=== PATIENT | female | born 1975 | race African-American/Black ===

== ENCOUNTER 2024-10-10 14:33 | Outpatient (CLI) | payer OTHER, SELFPAY ==
--- NOTE | ~2024-10-10 | MR_ITS ---
EXAMINATION: MR shoulder LT wo con DATE: 10/10/2024 15:27 INDICATION: Pain of left shoulder region, Left Shoulder Pain . TECHNIQUE: Magnetic resonance imaging (MRI) of the shoulder was performed without intravenous contras t. Sequences included axial PD-weighted FS FSE, coronal oblique PD-weighted FS FSE and T2-weighted FS FSE, and sagittal oblique T2-weighted FS FSE and T1-weighted FSE. COMPARISON: None. FINDINGS: Coracoacromial arch: Mild anterior downsloping of the type I acromion. Small inferior acromial tip enthesophyte. Mild suba cromial space narrowing. Mild subcoracoid space narrowing Rotator cuff: Supraspinous, infraspinatus, and teres minor are intact. Focal thickening and abnormal signal in the distal subscapularis tendon. Biceps tendon and glenoid labrum: Considerable thickening and abnormal signal within the long head of biceps tendon, including short se gment linear high signal abnormality near the anchor. Severely degenerative glenoid labrum that is pa rtially obscured by artifact. Fluid: Small volume glenohumeral joint fluid collection. Trace subacromial/subdeltoid fluid. 11 mm loose bod y in the subscapular and inferior joint recesses. 2.2 x 1.1 cm ossific body in the anterior joint. Bones/cartilage: Susceptibility artifact over the glenoid which obscures anatomic detail of the glenoid, labrum and gl enohumeral joint. Moderate glenohumeral cartilage thinning. Moderate humeral head osteophytosis. Mild degenerative change at the AC joint. Degenerative subcortical cystic change in the superior humeral head IMPRESSION: Likely status post surgical repair of the glenoid. Recommend correlation with surgical history and op erative rib note. 2.2 cm ossific body in the anterior shoulder, may represent old fracture fragment. Recommend a comple te shoulder radiograph series for further characterization of this finding and further assessment of the surgical changes. Multiple loose body in the glenohumeral joint. Moderate glenohumeral osteoarthritis. Severe long head of biceps tendinopathy, with short longitudinal type tear. Subscapularis tendinopathy. Reviewed, dictated and finalized at location K. IMPRESSION: Likely status post surgical repair of the glenoid. Recommend correlation with s urgical history and operative rib note. 2.2 cm ossific body in the anterior shoulder, may represent old fracture fragme nt. Recommend a complete shoulder radiograph series for further characterizatio n of this finding and further assessment of the surgical changes. Multiple loose body in the glenohumeral joint. Moderate glenohumeral osteoarthritis. Severe long head of biceps tendinopathy, with short longitudinal type tear. Subscapularis tendinopathy.
--- OUTSIDE RECORDS SUMMARY | 2024-10-10 14:36 | XMS_ITS ---
Author Organization [employer] Address [address] [facility] [address] [place] [address] Care Team Providers Care Performance Improvement Manager Name Role Phone Migration, Provider Unavailable Unavailable REASON FOR VISIT EMR-Eliu Encounters Encounter Location Date Provider [facility] [place] [address] [facility] [address] [place], [place] [id number] 12/20/2023 Provider Migration Plan Of Treatment No Information Progress Notes * Arminda TALBERTOB:1975 (49 yo F)Acc No.[id number]:12/20/2023 Patient: Cornelia BANSAL :1975 A ge:48 Y S ex:Female Address:[address] [facility], [place], [address] Subjective: * Chief Complaints: * E MR-Eliu * Medical History: * Surgical History: * Hospitalization/Major Diagno stic Procedure: * Medications: Objective: * Vitals: * Physical Examination: Assessment: Plan: * Treatment: * Procedure Codes: * * Date:
--- OUTSIDE RECORDS SUMMARY | 2024-10-10 14:36 | XMS_ITS ---
Author Organization [employer] Address [address] [facility] [address] [place] [address] Care Team Providers Care Pin Sorter And Bagger Name Role Phone Migration, Provider Unavailable Unavailable REASON FOR VISIT EMR-Eliu Encounters Encounter [facility] Date [facility] [place] [address] [facility] [address] [place], [place] [id number] 12/21/2023 Provider Migration Plan Of Treatment No Information Progress Notes * Arminda TALBERTOB:1975 (49 yo F)Acc No.[id number]:12/21/2023 Patient: Cornelia BANSAL :1975 A ge:48 Y S ex:Female Address:[address] [facility], [place], [address] Subjective: * Chief Complaints: * E MR-Eliu * Medical History: * Surgical History: * Hospitalization/Major Diagno stic Procedure: * Medications: Objective: * Vitals: * Physical Examination: Assessment: Plan: * Treatment: * Procedure Codes: * * Date:
--- OUTSIDE RECORDS SUMMARY | 2024-10-10 14:36 | XMS_ITS | Patient Health Record ---
Author Organization [employer] Address [address] [facility] [address] [place] [address] Care Team Providers Care Assorter Laundry Name Role Phone Migration, Provider Unavailable Unavailable Reason For Referral No Information Encounters Encounter Location Date Provider Diagnosis [facility]lali Olivares [facility] [address] [facility] [address] [place], [place] [id number] 12/20/2023 Provider Migration Citlali Olivares [facility] [address] [facility] [address] [place], [place] [phone] 12/21/2023 Provider Migration Plan Of Treatment No Information
--- OUTSIDE RECORDS SUMMARY | 2024-10-10 14:36 | XMS_ITS | Referral Summary ---
Author Organization [facility] al Address [address] [place] [address] Care Team Providers Care Self Pay Specialist Name Role Phone No, Physician Primary Care Provider [phone] Allergies No known active allergies Medications acetaminophen (TYLENOL) 500 mg tabletIndicatio ns:Pain Take 1-2 tablets (500-1,000 mg total) by mouth every 6 (six) hours as needed for pain (1 tablet for mild to moderate pain. 2 tablets for severe pain) 30 tablet 1 Active naproxen (NAPROSYN) 500 mg tablet Take 1 tablet (500 mg total) by mouth 2 (two) times a day with meals 30 tablet 1 Active albuterol HFA (PROVENTIL HFA,VENTOLIN HFA,PROAIR HFA) 90 mcg/actuation inhaler Inhale 2 puffs every 4 (four) hours as needed for wheezing 8.5 g 3 Active fluticasone propion-salmete roL (ADVAIR DISKUS) 250-50 mcg/dose diskus inhalerIndicati ons:Maintenance Therapy for Asthma,Rinse mouth after use Inhale 1 puff 2 (two) times a day Rinse mouth with water after use. Do not swallow. 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 2-4 times a month 05/02/2023 Q2: How many drinks containi ng alcohol do you have on a typical day when you are drinking? 1 or 2 05/02/2023 Q3: How often do you have si x or more drinks on one occasion? Never 05/02/2023 Personal Safety Answer Date Recorded Have you ever been in or are you currently in a harmful physical or emotional relationship or is someone making you feel afraid or unsafe? Denies 05/02/2023 Comments No Sex and Gender Information Value Date Recorded Sex Assigned at Not on file Legal Sex Female 8:24 AM CLIP LOADING MACHINE FEEDER Gender Identity Not on file Sexual Orientation Not on file Last Filed Vital Signs Vital Sign Reading Time Taken Comments Blood Pressure 118/68 03/31/2024 1:12 PM CLIP LOADING MACHINE FEEDER Pulse 91 03/31/2024 1:12 PM CLIP LOADING MACHINE FEEDER Temperature 36.9 C (98.5 F) 03/31/2024 1:12 PM CLIP LOADING MACHINE FEEDER Respiratory Rate 18 03/31/2024 1:12 PM CLIP LOADING MACHINE FEEDER Oxygen Saturation 99% 03/31/2024 1:12 PM CLIP LOADING MACHINE FEEDER Inhaled Oxygen Concentration - - Weight 79.4 kg (175 lb) 03/31/2024 1:12 PM CLIP LOADING MACHINE FEEDER Height 162.6 cm (5' 4) 03/31/2024 1:12 PM CLIP LOADING MACHINE FEEDER Body Mass Index 30.04 03/31/2024 1:12 PM CLIP LOADING MACHINE FEEDER Plan of Treatment Not on file Insurance IDPA [facility] [employer]CIAL GENERIC [facility] Care Teams Self Pay Specialist Relationship Specialty Start Date End Date No, Physician PCP - General 04/21/23
--- OUTSIDE RECORDS SUMMARY | 2024-10-10 14:36 | XMS_ITS | Clinical Summary ---
Author Organization [facility] Address [address] [place] [address] Care Team Providers Care Microsoft Dynamics Consultant Name Role Phone None, Provider MD Primary Care Provider Unavaila ble Allergies No known active allergies Medications No known medications Active Problems No known active problems Family History Medical History Relation Comments Cancer Mother Hyperlipidemia Mother Relation Status Comments Mother Social History Tobacco Use Types Packs/Day Years Used Date Smoking Tobacco: Never Smokeless Tobacco: Never Alcohol Use Standard Drinks/Week Comments Yes 0 (1 standard drink = 0.6 oz pur e alcohol) OCCASIONAL Comments No Sex and Gender Information Value Date Recorded Sex Assigned at Not on file Legal Sex Female 4:36 PM CDT Gender Identity Not on file Sexual Orientation Not on file Last Filed Vital Signs Vital Sign Reading Time Taken Comments Blood Pressure 123/95 11/30/2023 3:46 PM CDT Pulse 78 11/30/2023 3:46 PM CDT Temperature 37.1 C (98.8 F) 11/30/2023 3:46 PM CDT Respiratory Rate 16 11/30/2023 3:46 PM CDT Oxygen Saturation 100% 11/30/2023 3:46 PM CDT Inhaled Oxygen Concentration - - Weight 72.6 kg (160 lb) 11/30/2023 3:46 PM CDT Height 165.1 cm (5' 5) 11/30/2023 3:46 PM CDT Body Mass Index 26.63 11/30/2023 3:46 PM CDT Plan of Treatment Health Maintenance Due Date Last Done Comments Cervical Cancer Screening Pa p Smear (Age 30 to 64) Every 3 Years 1974 Colorectal Cancer Screening Colonoscopy (10 Years) 1974 Annual Physical 1977 Hepatitis C 1992 DTaP, Tdap and Td Vaccines ( 1 - Tdap) 1993 Hepatitis B Vaccines (1 of 3 - 19+ 3-dose series) 1993 Cervical Cancer Screening Iggy sherman with HPV Testing (Age 30 to 64) Every 5 Years 2004 Cervical Cancer Screening with HPV 2004 Mammogram Screening 2014 COVID-19 Vaccine (2 - 2023-2 5 season) 2023 06/29/2020 Pneumococcal Vaccine: 50+ Ye ars (1 of 1 - PCV) 2024 Zoster Vaccines (1 of 2) 2024 Meningococcal B Vaccine Aged Out No l onger eligible based on patient's age to complete this topic Meningococcal Vaccine Aged Out No armando jsesica eligible based on patient's age to complete this topic RSV Immunizations Under 20 Months Aged Out No longer eligible based on patient's age to complete this topic Insurance MEDICAID MEDICARE MEDICARE [facility] Care Teams Microsoft Dynamics Consultant Relationship Specialty Start Date End Date None, Provider, PCP - General UNKNOWN PHYSICIAN SPECIALTY 11/30/23
--- OUTSIDE RECORDS SUMMARY | 2024-10-10 14:36 | XMS_ITS | Data Portability ---
Author Organization [place] - [facility] Main Office Address [address] [place] [address] Assessment Encounter Date Assessment Date Assessment LastModified by Organization Details LastModified Time 09/01/2024 09/01/2024 49-year-old presents today with left shoulder pain that started after an injury at work in April. She states that she was using a power tool that jerked her arm and caused it to dislocate anteriorly. She states that the arm relocated on its own. Her boss was a witness to this. They sent her to the medical office at her work and she states she was given ice and placed on light duty. Since his injury she has lost function of the arm. She can not lift it more than a couple of degrees in front of her. She has severe pain when trying to move it and the pain keeps her awake most nights. She thought it would eventually get better on its own but it has gotten worse. For treatment she has tried Tylenol and ibuprofen, which do not help. She worked light duty for a while before quitting because she was unable to go back full duty. She states when she was younger she had a surgery on her left shoulder but is unsure what was done. She did not have any issues with the shoulder after that surgery, she states all of her issues started after this work injury. Review of systems per patient questionnaire imaging: X-rays reviewed show no acute bony abnormality or fracture. She has severe osteoarthritis of the shoulder. There is hardware present in the glenoid that is intact. Physical exam: pain with palpitation over anterior and posterior shoulder. Range of motion 85/ 15/ back pocket. Pain with elevation without resistance. 4/5 rotator cuff strength. Positive jobes. She had acute loss of function after a dislocation of the shoulder. She likely tore her rotator cuff when this injury occurred. We will get an MRI of the left shoulder to assess this. For pain we will try meloxicam. Since this was a work injury we discussed whether or not she plans to file this as a worker's comp claim. She states this was not something she thought about doing and will discuss it with a relative in the legal field. She wanted to proceed with todays appointment. We will see her back after the MRI to go over results. [email or web address] Not available 09/02/2024 15:37:09 Plan of Treatment Reminders Order Date Submit Date Provider Last Modified By Organization Details Last Modified Time Details Appointments Any 5 2024 02:30P William Philip MD Not available Not available Not available Lab None recorded. Referral None recorded. Procedures None recorded. Surgeries None recorded. Imaging XR, shoulder, 2 or more view 2024 025 [email or web address] [place], [address], [place], [address], 09/01/2024 21:42:31 MRI, shoulder, w/o contrast - Please provide pt with disc to bring to apt. Thanks patient is scheduled 10/05 025 [facility], [address], [place], [address], 10/05/2024 15:54:49 Medication Orders meloxicam 15 mg tablet 2024 025 [id number], [address] [facility], [place], [place], [id number], 09/06/2024 09:33:21 Patient TargetsNo targets recorded. Patient InstructionsNo instructions recorded. Reason for Referral None Reported. Results Created Date Observation Date Name Description Value Unit Range Abnormal Flag Note LastModifiedBy Organization Detail LastModifiedTime 09/02/19 25 XR, shoul jeffery, 2 or more view No observ ation record ed. [email or web address] [facility] [place] [address], [place], [address], 09/01/2024 16:31:09 Result Notes None recorded. Problems Name Problem SNOMED Code Status Onset Date Resolution Date Notes Provider Name and Address Organization Details Recorded Time Pain of left shoulder region Active 025 Jovana Scott CNA audelia [facility] [place] 09/01/2024 15:40:11 Problem Notes None recorded. Medical Equipment None Reported. Allergies No known drug allergies Medications Name Sig Start Date Stop Date Status Note LastModified by Organization Details LastModified Time meloxicam 15 mg tablet TAKE 1 TABLET BY MOUTH EVERY DAY active Not Available Not Available No t Available albuterol sulfate HFA 90 mcg/actuat ion aerosol inhaler INHALE TWO PUFFS BY MOUTH EVERY 6 HOURS NEEDED FOR SHORTNESS OF BREATH OR WHEEZING 09/01 completed Not Available Not Available Not Available Denta 5000 Plus 1.1 % cream USE SMALL PEA-SIZE AMOUNT AT BEDTIME. DO NOT RINSE FOR AT LEAST 30 MINS 09/01 completed Not Available Not Available Not Available Vitals Date Recorded Body height Body mass index (BMI) Body weight Provider Name and Address Organization Details Last Updated DateTime 09/01/2024 157.48 cm 29.3 kg/m2 73410.78 g Jovana Scott CNA [facility] 09/01/2024 15:37:17 Social History None recorded. Functional Status Question Answer Note LastModified by Organization D etails LastModified Time What is your level of alcohol consumption? None [email or web address] Information not available 09/01/2024 Mental Status None recorded. Family History Relationship Description Onset Age of this Age Resolved Age Notes LastModified by Organization Details LastModified Time Mother History of malignant neoplasm [email or web address] Not available 2024 15:38:37 Maternal Aunt History of malignant neoplasm [email or web address] Not available 2024 15:38:37 Maternal Uncle History of malignant neoplasm [email or web address] Not available 2024 15:38:37 Medical History No medical history recorded. Gynecological HistoryNo gynecological history recorded. Obstetrics History GPAL:G 0 P 0 0 0 0 Past Encounters Encounter ID Performer Location Encounter Start Date Encounter Closed Date Diagnosis/Indication Diagnosis SNOMED-CT Code Diagnosis ICD10 Code Diagnosis Note [id number] Pardeep Philip MD [facility] [place] [address] [place] [address] 09/01/2024 15:21:19 09/01/2024 16:27:23 Pain of left shoulder region 4297032375 M25.512 Health Concerns Section Related Observation LastModified by Organization Detai ls LastModified Time None Recorded Concern Status LastModified by Organization Details LastModified Time None Recorded Advance Directives Directive None Recorded Payers Insurance Date Sequence Insurance Name Policy Number Policy Barone Covered Member ID Barone Member ID Guarantor Name 09/19/2024 1 [facility] (O) [id number] Cornelia Talbert [id number] Cornelia Talbert 08/30/2024 1 [employer] COMPLETE CARE (MEDICARE REPLACEMENT/ ADVANTAGE - HMO) Cornelia Talbert [id number] Cornelia Talbert OBGyn Episode No OBEpisode recorded.
--- OUTSIDE RECORDS SUMMARY | 2024-10-10 14:36 | XMS_ITS | Clinical Summary ---
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 Chronic pain 03/22/2016 Surgical History Surgery Date Site/Laterality Comments SHOULDER SURGERY Left Shoulder Surgery - (Added by TW Conv) SECTION x3 VAGINAL DELIVERY TUBAL LIGATION Bilateral 2010 Medical History Medical History Date Comments Asthma Obesity Adenopathy 03/[address] Dizziness 03/2023 Occasional use of marijuana Last menstrual period (LMP) > 10 days ago 2022 Family History Medical History Relation Name Comments Cancer Mother Family history of cancer - (Added by TW Conv) Stroke Mother Family history of cerebrovascular accident (CVA) - (Added by TW Conv) Relation Name Status Comments Mother Social History Tobacco Use [...] on file Legal Sex Female 8:24 AM PRE OWNED SALES CONSULTANT Gender Identity Not on file Sexual Orientation Not on file Obstetrics History Last Filed Vital Signs Vital Sign Reading Time Taken Comments Blood Pressure 118/68 03/31/2024 1:12 PM PRE OWNED SALES CONSULTANT Pulse 91 03/31/2024 1:12 PM PRE OWNED SALES CONSULTANT Temperature 36.9 C (98.5 F) 03/31/2024 1:12 PM PRE OWNED SALES CONSULTANT Respiratory Rate 18 03/31/2024 1:12 PM PRE OWNED SALES CONSULTANT Oxygen Saturation 99% 03/31/2024 1:12 PM PRE OWNED SALES CONSULTANT Inhaled Oxygen Concentration - - Weight 79.4 kg (175 lb) 03/31/2024 1:12 PM PRE OWNED SALES CONSULTANT Height 162.6 cm (5' 4) 03/31/2024 1:12 PM PRE OWNED SALES CONSULTANT Body Mass Index 30.04 03/31/2024 1:12 PM PRE OWNED SALES CONSULTANT Plan of Treatment Health Maintenance Due Date Last Done Comments Breast Cancer Screening-Mammogram 1974 Cervical Cancer Screening 1974 Colon Cancer Screening-Colonoscopy 1974 Depression Screening 1974 Hepatitis C Screening 1974 DTaP/Tdap/Td Vaccine (1 - Tdap) 1985 Hepatitis B Screening 1992 Regular Well Visit/Exam 18-64 1992 Covid-19 Vaccine (2 - 2023-2 5 season) 2023 06/29/2020 Zoster Vaccine (1 of 2) 2024 Influenza Vaccine (#1) 2024 Pneumococcal vaccine <65 Aged Out No longer eligible based on patient's age to complete this [place] [address] [facility] [employer]CIAL GENERIC [facility] [place] Care Teams Qc Manager Relationship Specialty Start Date End Date No, Physician PCP - General 04/21/23
== END 2024-10-10 14:34 | disposition home or self-care (01) ==
PROVIDERS: PCP Family Medicine; Visit Provider Nurse Practitioner Family
DX: M19.012 Primary osteoarthritis, left shoulder (principal); M24.012 Loose body in left shoulder
CPT/HCPCS: 73221

== ENCOUNTER 2025-02-05 10:55 | Emergency (ER) | payer MEDICARE, SELFPAY ==
[2025-02-05 11:07] VITALS: BP 127/76; PULSE 77; RESP 18; TEMP 36.8; O2SAT 100
--- NOTE | 2025-02-05 11:19 | ED.FEMALEGU ---
HPI - Female Genitourinary General Chief complaint: Urogenital-Female Stated complaint: urinary irritation patient presents to the [facility] with complaints of thin vaginal discharge, minimal vaginal irritation, and vaginal odor that began over the last few days. Patient does note she is in a monogamous relationship with 1 partner they do not use protection. Patient does not have significant concerns for STDs but would like tested. No history of STDs but noted has had yeast infections in the past this does not feel like previous infections. Denies abdominal pain, lower back pain, pelvic pain, vaginal bleeding, blood in urine, or burning with urination Related Data Allergies Allergy/AdvReac Type Severity Reaction Status Date / Time No Known Allergies Allergy Verified 02/05/25 10:58 Review of Systems Constitutional: Constitutional: Reports as per HPI, Denies chills and Denies fatigue Eyes: Eyes: Reports no additional eye complaints ENT: Reports system reviewed and no additional complaints, except as documented Cardiovascular: Cardiovascular: Reports no additional cardiovascular complaints Respiratory: Respiratory: Reports no additional respiratory complaints Gastrointestinal: Gastrointestinal: Reports as per HPI, Denies abdominal pain, Denies bloating, Denies heartburn, Denies diarrhea, Denies nausea and Denies vomiting Genitourinary: Genitourinary: Reports as per HPI, Denies abnormal vaginal bleeding, Denies hematuria, Denies nocturia, Denies genital lesions, Denies dysuria, Denies pelvic pain, Denies flank pain, Denies urinary incontinence and Reports vaginal discharge Musculoskeletal: Musculoskeletal: Reports as per HPI and Denies back pain Integumentary/Breasts: Skin/Breast: Reports as per HPI, Denies erythema and Denies rash Neurologic: Reports as per HPI, Denies headache(s), Denies numbness and Denies weakness Psychiatric: Psychiatric: Reports no additional psychiatric complaints Endocrine: Endocrine: Reports no additional endocrine complaints Hematologic/Lymphatic: Hematologic/Lymphatic: Reports no additional hematologic/lymphatic complaints Allergic/Immunologic: Allergic/Immunologic: Reports no additional allergic/immunologic complaints [facility] Past Medical History Medical History (Updated 02/05/25 @ 11:36 by Princess Lizama APRN, [employer]) Bipolar disorder Asthma Family History Family History (Updated 08/24/24 @ 09:17 by Jolly Otoole [facility]) Mother Breast cancer Lung cancer Heart problem Father Cerebrovascular accident Hypertension Sibling Depression Anxiety Social History Social History (Updated 08/24/24 @ 14:40 by Jolly Otoole CMA) Smoking status: Never smoker Alcohol intake: former Substance use: never Substance use type: does not use Do You Feel Safe in your Home?: Yes Lack of Transportation: No Lack of Food: Never True Current Housing: I Have Housing Concerned About Future Housing: No Difficulty Paying Gas/Electric Bills: No Difficulty Paying for Meds: No Currently Unemployed: No Education: High School Diploma/GED Difficulty w/ Childcare or Family Care: No Exam Const: General: healthy appearing and no acute distress Nutritional Appearance: well nourished Orientation/consciousness: patient oriented x3 Limitations: no limitations Resp: Effort & Inspection: normal respiratory effort Auscultation: clear to auscultation bilaterally Cardio: Rate: regular rate Rhythm: regular rhythm GI: Inspection: non-distended GI Palp: Yes Soft to palpation, No Tenderness to palpation present (GI), No Guarding due to palpation present (GI), No Rigid due to palpation, No Hernia present and No Rebound tenderness present Auscultation: normal bowel sounds : General: Yes bladder normal to palpation and Yes no CVA tenderness Skin: General skin exam: normal color Rashes: no rashes Wounds: no wounds Neuro: General: patient oriented x3 Speech: normal speech Gait exam (Neuro): Normal gait present Psych: Appearance: grossly normal Mental Status: mental status grossly normal Affect: normal affect Attitude: cooperative Course Course Level of Care: Express Care Visit Vital Signs Vital signs: Vital Signs Temperature 98.3 F 02/05/25 11:07 Pulse Rate 77 02/05/25 11:07 Respiratory Rate 18 02/05/25 11:07 Blood Pressure 127/76 02/05/25 11:07 Pulse Oximetry 100 02/05/25 11:07 Oxygen Delivery Room Air 02/05/25 11:07 Temperature 98.3 F 02/05/25 11:07 Pulse Rate 77 02/05/25 11:07 Respiratory Rate 18 02/05/25 11:07 Blood Pressure 127/76 02/05/25 11:07 Pulse Oximetry 100 02/05/25 11:07 Oxygen Delivery Room Air 02/05/25 11:07 MDM - Female Genitourinary MDM Narrative Medical decision making narrative: several testing done for STDs with bacterial vaginosis and yeast given symptoms will treat for bacterial vaginosis at this time. The patient was evaluated by myself in the express care. History is obtained from patient who is an independent historian and physical exam was performed. Available medical records were reviewed at this time. Exam findings show no acute concerns or changes; patient is non-toxic appearing and is in no distress. Patient is appropriate for outpatient treatment and follow-up. I have evaluated and discussed social determinants of health with the patient that could potentially impact subsequent diagnosis and treatment plans. Differential diagnosis and treatment plan were discussed with the patient. Patient agrees with discussion and after shared medical decision making agrees with plan of care. All questions were answered to the patient's satisfaction. Differential Diagnosis Differential diagnosis: Likely urinary tract infection, bacterial vaginosis, trichomoniasis, cervicitis, vaginitis and cystitis Medical Records Attestation: I reviewed the patient's medical records. Lab Data Attestation: I reviewed the patient's lab results. Discharge Plan Discharge Clinical Impression: Bacterial vaginosis Patient Disposition: Home Condition: Stable Instructions: Antibiotic Form, Bacterial Vaginosis (ED), Sexually Transmitted Diseases (ED) Additional Instructions: Will have tested your urine for chlamydia, gonorrhea, Trichomonas.We have also done vaginal swabs for bacterial vaginosis and yeast infection- we have started treatment for bacterial vaginosis You will get a call from the [facility] with results only if they are positive if you have questions or concerns you may call the [facility]. If you continue to have symptoms follow-up with [facility] or primary care physician for evaluation. Would recommend follow-up with primary care, [facility], health department, clinic in [place], or [facility] [place] for further STD testing or follow-up STD testing. They do have blood work testing available at these facilities. Few began to have significant abdominal pain, fever, chills, body aches, or any other concerning symptoms go to the emergency room for further evaluation of symptoms. Patient Language: Telugu Prescriptions: New metronidazole 1.3 % (65 mg/5 gram) gel 1 appful vaginal HS Qty: 25 0RF No Action albuterol sulfate [Ventolin HFA] 90 mcg/actuation HFA aerosol inhaler 1 puff inhalation Q4H PRN (Reason: shortness of breath or wheezing) Qty: 6.7 0RF fluticasone propion-salmeterol 100-50 mcg/dose blister with device See Rx Instructions .ROUTE .COMPLEX Qty: 180 0RF Dose Instruction: INHALE 1 PUFF BY MOUTH EVERY 12 HOURS Rx Instructions: INHALE 1 PUFF BY MOUTH EVERY 12 HOURS Follow-up/Referrals: Yajaira Boston DO [Primary Care Provider, [facility]] Time of Disposition: 11:37
--- NOTE | 2025-02-05 11:34 | PC.NURSE ---
1125 to br to collect vag. swab for bv and yeast per surg tech order and to collect clean and dirty urine for sti and uti testing.
[2025-02-05 11:54] LABS: EDUAAPPEAR Clear; EDUABILI Negative (Negative); EDUABLOOD Negative (Negative); EDUACOLOR1 Yellow; EDUAGLUCOSE Negative (Negative); EDUAKETONE Negative (Negative); EDUALEUKO Trace (Negative); EDUANITRATE Negative (Negative); EDUAPH 5.5; EDUAPROTEIN Negative (Negative); EDUASPGRAVITY 1.025; EDUAUROBILI 0.2
[2025-02-05 19:10] LABS: Trichomonas Vag PCR DETECTED (NOT DETECTE)
== END 2025-02-05 11:42 | disposition home or self-care (01) ==
PROVIDERS: Emergency Provider Nurse Practitioner Family; PCP Family Medicine
DX: N76.0 Acute vaginitis (principal); Z11.3 Encounter for screening for infections with a predominantly sexual mode of transmission; J45.909 Unspecified asthma, uncomplicated
CPT/HCPCS: 81003; 87086; 87101; 87491; 87591; 87661; 87798; 99213; G0463

== ENCOUNTER 2025-03-21 00:44 | Day surgery (SDC) | payer MEDICARE, MEDICAID, SELFPAY ==
[2025-02-28 09:25] VITALS: BMI 28.9
[2025-03-21 06:43] VITALS: BP 118/62; PULSE 79; RESP 18; TEMP 36.4; O2SAT 99; BMI 30.4
[2025-03-21 06:58] LABS: BEDSIDEPREGUCG Negative (Negative)
[2025-03-21] MEDS: LACTATED RINGERS 1,000 ML 150 ML IV CONT (07:04)
--- NOTE | 2025-03-21 07:31 | WPDANESEPPF ---
Anes - Initial Pre Proc Eval Procedure: Operation Date: 03/21/25 08:00 Proposed Procedures p Screening Colonoscopy - Jg Field DO Date/Time: 03/21/25 07:31 Surgeon: Jg Field DO Pre Op Diagnosis: Neoplasm screening Patient Data Age: 49 Gender: F Height: 1.6 m Weight: 77.8 kg Last Vital Signs Temp 36.4 C 03/21/25 06:43 Pulse 79 03/21/25 06:43 Resp 18 03/21/25 06:43 BP 118/62 03/21/25 06:43 Pulse Ox 99 03/21/25 06:43 O2 Del Method Room Air 03/21/25 06:43 Allergies Allergy/AdvReac Type Severity Reaction Status Date / Time No Known Allergies Allergy Verified 03/21/25 06:50 Home Medications ?Medication ?Instructions ?Recorded ?Confirmed ?Type albuterol sulfate 90 mcg/actuation 1 puff inhalation Q4H PRN 09/13/24 03/21/25 Rx aerosol inhaler (Ventolin HFA) shortness of breath or wheezing #6.7 grams Laboratory Tests 03/21/25 06:56 POC Urine HCG, Qual Negative (Negative) Patient hx anesthesia problems: none Family hx anesthesia problems: none Results Review: All pre-operative results and documents have been reviewed as part of the pre-operative evaluation. [facility] Past Medical History Medical History Bipolar disorder Asthma Family History Family History Mother Breast cancer Lung cancer Heart problem Father Cerebrovascular accident Hypertension Sibling Depression Anxiety Social History Social History Smoking status: Never smoker Alcohol intake: former Substance use: never Substance use type: does not use Lack of Transportation: No Lack of Food: Never True Current Housing: I Have Housing Concerned About Future Housing: No Difficulty Paying Gas/Electric Bills: No Difficulty Paying for Meds: No Currently Unemployed: No Education: High School Diploma/GED Difficulty w/ Childcare or Family Care: No Anes - Eval Final PreProcedure Day of Procedure 03/21/25 07:31 Patient weight: overweight Heart: regular rate and rhythm Lungs: clear to auscultation Airway: Mallampati scale class III Neurological: alert and oriented Last oral intake: >/= 8 hours ASA classification: II Emergent: no Anesthetic plan: proceed Anesthesia type and monitoring: general GIVS and standard monitoring Results Review: All pre-operative results and documents have been reviewed as part of the pre-operative evaluation. Informed Consent: The patient's anesthetic plan and its attendant risks and benefits were discussed with the patient/family/POA. Questions were solicited and answers provided to the satisfaction of the patient/family/POA.
--- NOTE | 2025-03-21 07:59 | P.HP_ITS ---
H&P: HPI History of Present Illness Date/Time: 03/21/25 07:59 Chief Complaint: Screening for colorectal cancer Narrative: This is a 49-year-old woman who presents for her 1st colonoscopy. She denies any hematochezia or melena. She denies any family history of colon cancer. Review of Systems Review of Systems: All systems reviewed & are unremarkable except as noted in HPI and below Constitutional: Constitutional: Denies chills, Denies fever(s), Denies headache(s) and Denies weight loss Eyes: Eyes: Denies change in vision ENT: Denies dizziness, Denies headache(s), Denies neck mass and Denies throat swelling Cardiovascular: Cardiovascular: Denies chest pain, Denies lightheadedness and Denies dyspnea Respiratory: Respiratory: Denies cough, Denies dyspnea and Denies wheezing Gastrointestinal: Gastrointestinal: Denies abdominal pain, Denies change in bowel habits, Denies nausea and Denies vomiting Genitourinary: Genitourinary: Denies hematuria and Denies dysuria Musculoskeletal: Musculoskeletal: Reports as per HPI Integumentary/Breasts: Skin/Breast: Reports as per HPI Neurologic: Denies dizziness and Denies headache(s) Allergic/Immunologic: Allergic/Immunologic: Denies throat swelling and Denies wheezing PMFSH Past Medical History Medical History Bipolar disorder Asthma Family History Family History Mother Breast cancer Lung cancer Heart problem Father Cerebrovascular accident Hypertension Sibling Depression Anxiety Social History Social History Smoking status: Never smoker Alcohol intake: former Substance use: never Substance use type: does not use Lack of Transportation: No Lack of Food: Never True Current Housing: I Have Housing Concerned About Future Housing: No Difficulty Paying Gas/Electric Bills: No Difficulty Paying for Meds: No Currently Unemployed: No Education: High School Diploma/GED Difficulty w/ Childcare or Family Care: No Meds Home Medications and Allergies Home Medications ?Medication ?Instructions ?Recorded ?Confirmed ?Type albuterol sulfate 90 mcg/actuation 1 puff inhalation Q 4H PRN 09/13/24 03/21/25 Rx aerosol inhaler (Ventolin HFA) shortness of breath or wheezing #6.7 grams Allergies Allergy/AdvReac Type Severity Reaction Status Date / Time No Known Allergies Allergy Verified 03/21/25 06:50 Vital Signs Vital Signs - 24 hr 03/21/25 06:43 Temperature 97.6 F Pulse Rate 79 Respiratory Rate 18 Blood Pressure 118/62 Pulse Oximetry 99 Oxygen Delivery Room Air Exam Const: General: no acute distress and alert Orientation/consciousness: patient oriented x3 HENMT: Head: normocephalic and atraumatic Ears: hearing grossly normal bilaterally Face/Nose/Sinus: Normal nares present Mouth: Yes Normal oral and palatal mucosa present Eyes: Periorbital: periorbital findings normal Sclera: sclerae normal EOM: EOMs intact bilaterally Neck: Neck: normal visual inspection, no lymphadenopathy and trachea midline Chest: Chest palpation & inspection: normal inspection of the chest Resp: Effort & Inspection: normal respiratory effort Auscultation: clear to auscultation bilaterally Cardio: Jugular venous distension: no JVD Rate: regular rate Rhythm: regular rhythm Heart sounds: S1 normal heart sound present and S2 normal heart sound present Peripheral pulses: Peripheral pulses 2+ throughout GI: Inspection: normal to inspection GI Palp: Yes Soft to palpation, No Tenderness to palpation present (GI), No Guarding due to palpation present (GI) and No Rebound tenderness present Percussion: Yes normal to percussion Auscultation: normal bowel sounds : General: Yes no CVA tenderness Back/Spine/Pelvis: Back: no CVA tenderness Neuro: General: patient oriented x3, no focal motor deficits and CN's II-XI intact bilaterally Cognition (Neuro): normal cognition Speech: normal speech Motor exam (neuro): 5/5 motor strength present throughout Extrem: General: capillary refill normal and no clubbing, cyanosis or edema Assessment and Plan Assessment and plan (1) Screening for colorectal cancer: Code(s): Z12.11 - Encounter for screening for malignant neoplasm of colon; Z12.12 - Encounter for screening for malignant neoplasm of rectum Status: Acute Assessment and Plan: I have recommended colonoscopy. I have discussed the procedure, risks, benefits, and alternatives. Questions were answered. Patient is agreeable to proceed.
--- NOTE | 2025-03-21 08:23 | S_PTH ---
PATIENT: Cornelia Talbert LOC: [facility] #:[id number] AGE/SX: 49/F ROOM: RE03/21/[address]: Jg Field DO : 1975 BED: DIS: 03/21/2025 SPEC #: [id number] RECD: 03/21/25 10:14 STATUS: LISET REScott #: [id number] ANGEL LUIS: 03/21/25 08:[address]: Jg Field DEPT: [facility] Surgical RECD BY: Nubia Fermin ENTERED: 03/21/25 10:14 SP TYPE: Surgical OTHR DR: Yajaira Boston DO Tissues: A - Colon Polypectomy Procedures: Hematoxylin and Eosin Stain Gross and Microscopic Level 4
[2025-03-21 08:25] VITALS: BP 121/79; PULSE 83; RESP 18; O2SAT 100
[2025-03-21 08:35] VITALS: BP 128/74; PULSE 72; RESP 18; O2SAT 100
[2025-03-21 08:45] VITALS: BP 133/74; PULSE 66; RESP 18; O2SAT 100
== END 2025-03-21 08:56 | disposition home or self-care (01) ==
PROVIDERS: Anesthesiology; PCP Family Medicine; Visit Provider Surgery
PROC: 0DJD8ZZ Inspection of Lower Intestinal Tract, Via Natural or Artificial Opening Endoscopic (ICD-10-PCS; CPT 45378; principal; 2025-03-21 08:00)
DX: Z12.11 Encounter for screening for malignant neoplasm of colon (principal); D12.3 Benign neoplasm of transverse colon
CPT/HCPCS: 45380; 88305; J2704; J7120